=== PATIENT | female | born 1955 | race Two or more races ===

== ENCOUNTER → 2022-06-07 | Outpatient (CLI) | payer OTHER | END | disposition home or self-care (01) | LOC: RAD 16:27 | PROVIDERS: ATTEND Physical Medicine & Rehabilitation | DX: M17.0 Bilateral primary osteoarthritis of knee (principal) ==

== ENCOUNTER 2022-09-06 08:59 | Outpatient (CLI) | payer OTHER | END 2022-09-06 09:00 | disposition home or self-care (01) | LOC: NUCLEAR 08:59 | PROVIDERS: ATTEND Physical Medicine & Rehabilitation | DX: I73.9 Peripheral vascular disease, unspecified (principal); I87.2 Venous insufficiency (chronic) (peripheral) ==

== ENCOUNTER 2022-09-07 09:17 | Outpatient (CLI) | payer OTHER | END 2022-09-07 09:18 | disposition home or self-care (01) | LOC: NUCLEAR 09:17 | PROVIDERS: ATTEND Physical Medicine & Rehabilitation | DX: I73.9 Peripheral vascular disease, unspecified (principal); I87.2 Venous insufficiency (chronic) (peripheral) ==